=== PATIENT | male | born 1935 | race Caucasian/White ===

== ENCOUNTER 2017-05-17 13:30 | Outpatient (RCR) | payer MEDICARE, SELFPAY ==
--- NOTE | 2017-03-21 14:03 | HP.PTEVAL_ITS ---
Patient's Visit Information SUZAN MARSH is a 81 year old M referred to Physical Therapy by Stephany FLORES with a diagnosis of BACK PAIN. Date of Evaluation: 03/21/17 Physical Therapist: Mj Mari PT, - Visit Plan Frequency: 1x/Week Duration: 4 Weeks Plan: postural ex's,DLS ,strengthening - Subjective Subjective: This 81 y/o male presents to physical therapy with back pain. Patient has had lumbar pain many years. Location of pain symtrical in lumbar ache. Patient symtoms worse with walk ,standing ,affects ADL'S and housework tasks. Patient uses cart when walking at grocery use cart to lean on. Symmptoms better with rest ,sitting. Coughing /sneezing -. C/O parathesia feet from DM. Patient had epidural injection last week which helped pain. Patient has had no treatment in past.If patient carry's anything causes back pain. SOCIAL . VOCATION: retired - Pain Bilateral Back Pain Intensity (Out of 10): 1 Pain Intensity Range: 10 - Objective POSTURE: mild foward posture. GAIT: mild foward posture ,reciprocal pattern. NEURO: c/o parathesia/tingling feet,reflexes L3-4,L4-5.;5-S1. MMT: quads/hams,4 /5,4-/5 ankle 4/5. SYMMTRIES: align. LUMBAR ROM: flexion mod loss,extension loss,side glides mod loss mod loss. FLEXABLITY: hams mod tighty - Special Tests L/S Slump test left side: Negative L/S Slump test right side: Negative L/S Left Straight Leg Raise: Negative L/S Right Straight Leg Raise: Negative Lumbar Standing: Flexion - Mechanical Response: No effect Lumbar Standing: Flexion - Symptoms During Testing: No effect Lumbar Standing: Flexion - Symptoms After Testing: No better Lumbar Standing: Extension - Mechanical Response: No effect Lumbar Standing: Extension - Symptoms During Testing: Increases Lumbar Standing: Extension - Symptoms After Testing: No worse Lumbar Lying: Flexion - Mechanical Response: No effect Lumbar Lying: Flexion - Symptoms During Testing: Decreases Lumbar Lying: Flexion - Symptoms After Testing: Better - Goals Goal 1:: Independant with HEP Goal Time Frame: 4-6 Weeks Goal 2:: Independant with posture for ADL'S Goal Time Frame: 4-6 Weeks Goal 3:: Decrease lumbar pain with walking and standing by 50% or greater to improve function Goal Time Frame: 4-6 Weeks Goal 4:: Patient be able to perform ADL'S and housework tasks with min limations with standing and walking 5-10min - Rehabilitation Potential Physical Therapy Diagnosis: Patient has possible lumbar stenosis with symptoms worse with walking and standing,better with sitting thus benifit from skilled PT Rehabilitation Potential: Excellent - Anticipated Interventions Patient/Client Instruction: Educate patient on: Condition, Plan of Care For the Purpose of:: To decrease pain, To improve muscle performance and motor function, To improve ability to perform ADL's, To increase tolerance to activity /condition/position, To improve ability of physical actions for home/community/ work/leisure, To improve gait and locomotor functions, To improve health of tissue, To decrease soft tissue restriction, To prevent re-injury, To improve ability to perform tasks related to life management Therapeutic Exercise to Include: Strength training, Postural training, Flexibilty training, Dynamic Lumbar Stabilization For the Purpose of:: To decrease pain, To improve ability to perform ADL's, To increase tolerance to activity/condition/position, To improve ability of physical actions for home/community/work/leisure, To improve health of tissue, To decrease soft tissue restriction, To prevent re-injury, To improve ability to perform tasks related to life management IF ES: Yes Cryotherapy (ice pack, ice massage): Yes Thermo therapy (hot pack): Yes Ultrasound (thermal/non thermal): Yes For the Purpose of:: To decrease pain, To increase ROM, To improve nutrient delivery to tissue, To increase oxygenation perfusion, To improve gait and locomotor functions, To improve health of tissue Thank you for the opportunity to evaluate your patient. For Medicare and Medicare HMO plans, please review the plan of care and approve it. It will need to be FAXED BACK to us at [phone] for Medicare purposes. Please let me know if there are questions or concerns regarding this plan of care. Physician Signature: Date:
--- NOTE | 2017-05-17 14:14 | HP.PTDCSUM ---
HP - PT D/C Summary It has been my pleasure to treat SUZAN MARSH under orders from Stephany Caicedo, for the diagnosis of BACK PAIN for a total of 8 visit(s). Discharge Date: 05/17/17 Please see the following information for a summary of their discharge status. - Subjective Subjective: Doing okay pain is intermittant - Pain Bilateral Back Pain Intensity (Out of 10): 2 - Overall Improvement % Improvement: 55 - Objective Objective/Function: POSTURE: mild foward posture. GAIT: mild foward posture normal bettie reciprocal pattern. LUMBAR ROM: min loss all planes. MMT: 4/5 - Goals Goal 1:: Independant with HEP Goal Progress: Goal Met Goal 2:: Independant with posture for ADL'S Goal Progress: Goal Met Goal 3:: Decrease lumbar pain with walking and standing by 50% or greater to improve function Goal Progress: Goal Met Goal 4:: Patient be able to perform ADL'S and housework tasks with min limations with standing and walking 5-10min Goal Progress: Progressing - Plan Plan: d/c to HEP - D/C Information Discharge Comments: HEP If there are questions or concerns regarding this patient's physical therapy, please feel free to call me at [phone]. Thank you for the referral of this patient. Sincerely, Mj Mari, PT,
== END 2017-05-17 19:00 | disposition home or self-care (01) ==
LOC: PT 13:30
PROVIDERS: Family Provider Internal Medicine; PCP Internal Medicine; Visit Provider Anesthesiology Pain Medicine
DX: M54.9 Dorsalgia, unspecified (principal)
CPT/HCPCS: 97110; 97162

== ENCOUNTER → 2020-03-04 13:48 | Outpatient (CLI) | payer MEDICARE, SELFPAY ==
[2020-03-04 13:02] VITALS: BMI 34.3
[2020-03-04 15:02] LABS: Absolute Lymphocyte Count 0.95 X10^3/uL (0.83-4.51); Absolute Neutrophil Count 3.8 X10^3/uL (2.0-7.7); Basophil# 0.02 X10^3/uL; Basophil% 0.4 % (0-1); Eosinophil# 0.15 X10^3/uL; Eosinophils% 2.8 % (0-5); Hematocrit 37.3 % (40-54); Hemoglobin 11.3 g/dL (13.0-16.5); Lymphocyte # 0.95 X10^3/ul (4.0); Mean Corp Hgb Conc 30.3 g/dL (32-36); Mean Corpuscular Hgb 31.8 pg (27.0-32.0); Mean Corpuscular Volume 105.1 fL (80-94); Mean Platelet Vol. 10.3 fl (6.2-12.0); Monocyte# 0.33 X10^3/uL; Monocyte% 6.3 % (0-10); NRBC Flagged by Analyzer 0 % (0-5); Neutrophil % 72.1 % (47-70); Platelet Count 178 K/mm3 (150-450); RBC Distribution Width CV 13.7 % (11.6-14.6); RBC Distribution Width SD 53.6 fl (35.1-43.9); Red Blood Count 3.55 M/mm3 (4.6-6.2); White Blood Count 5.3 K/mm3 (4.4-11.0)
[2020-03-04 15:38] LABS: Anion Gap 2 (5-15); BUN 19 mg/dL (7-18); BUN/Creat Ratio 11.7 RATIO (10-20); Calcium,Total 9.3 mg/dL (8.5-10.1); Chloride 100 mmol/L (98-107); Creatinine, Serum 1.63 mg/dL (0.70-1.30); EST Glomerular Filtration Rate 43 mL/min (>60); Est Glom Filt Rate - Afr Amer 52 mL/min (>60); Glucose 112 mg/dL (74-106); Sodium Level 139 mmol/L (136-145)
== END ==
PROVIDERS: PCP Internal Medicine; Referring Provider Nurse Practitioner Family; Visit Provider Nurse Practitioner Family
DX: R06.00 Dyspnea, unspecified (principal); I48.0 Paroxysmal atrial fibrillation; I49.3 Ventricular premature depolarization; I10 Essential (primary) hypertension; E78.5 Hyperlipidemia, unspecified; I27.21 Secondary pulmonary arterial hypertension
CPT/HCPCS: 36415; 80048; 83880; 85025

== ENCOUNTER → 2020-04-18 13:30 | Outpatient (CLI) | payer MEDICARE, SELFPAY ==
--- NOTE | 2020-04-18 13:32 | ECHOD_ITS ---
Reason For Study: DYSPNEA/SOB Procedure This was a 2D Doppler, Color Flow transthoracic echocardiogram. The study was technically difficult. Due to body habitus. Deferred definity due to increases PAP. Exam performed in department. Left Ventricle Normal LV size. Left ventricular systolic function is lower limits of normal. The estimated ejection fraction is 45 %. No regional wall motion abnormalities noted. Right Ventricle Normal RV size. Normal systolic function. Atria The left atrium is moderately enlarged. Normal right atrium. Mitral Valve Normal mitral valve. Tricuspid Valve Normal tricuspid valve. Moderate (2+) tricuspid valve insufficiency. Moderate pulmonary hypertension. Pulmonary artery systolic pressure is 60 mmHg. Aortic Valve Trisinus/trileaflet aortic valve. Mild focal aortic valve calcification. Pulmonic Valve The pulmonic valve is not well visualized. Great Vessels Normal aortic root. The pulmonary artery is normal size. Normal inferior vena cava. Pericardium/Pleural No pericardial effusion. MMode/2D Measurements & Calculations LVIDd: 5.5 cm IVSd: 1.4 cm LVOT diam: 2.0 cm LVIDs: 3.7 cm LVPWd: 1.1 cm LVOT area: 3.3 cm2 RVDd: 3.3 cm FS: 32.1 % Ao root diam: 3.3 cm LAV(MOD-bp): 79.8 ml LA A4 area: 23.1 cm2 LAV(MOD-bp) Indexed: 38.8 ml/m2 LAV(MOD-sp2): 74.5 ml LAV(MOD-sp4): 69.8 ml LA dimension(2D): 4.0 cm RA A4 area: 17.8 cm2 Doppler Measurements & Calculations MV E max bashir: 94.2 cm/sec Ao V2 max: 164.1 cm/sec LV V1 max: 95.8 cm/sec Ao max P.8 mmHg LV V1 max P.7 mmHg DYANA(V,D): 1.9 cm2 PA V2 max: 70.9 cm/sec TR max bashir: 359.5 cm/sec TR max P.6 mmHg Interpretation Summary Normal LV size. Left ventricular systolic function is lower limits of normal. The estimated ejection fraction is 45 %. Moderate pulmonary hypertension. Pulmonary artery systolic pressure is 60 mmHg. Ordering Physician: Minesh Jerez Referring Physician: Edvin Sung Performed By: Lorena Teran, SIM, RVT
== END ==
PROVIDERS: PCP Internal Medicine; Referring Provider Nurse Practitioner Family; Visit Provider Nurse Practitioner Family
DX: I48.0 Paroxysmal atrial fibrillation (principal); E78.5 Hyperlipidemia, unspecified; I10 Essential (primary) hypertension; I27.21 Secondary pulmonary arterial hypertension; I49.3 Ventricular premature depolarization
CPT/HCPCS: 93306

== ENCOUNTER → 2020-05-02 14:31 | Outpatient (CLI) | payer MEDICARE, SELFPAY ==
[2020-05-02 16:15] LABS: Anion Gap 7 (5-15); BUN 31 mg/dL (7-18); BUN/Creat Ratio 17.8 RATIO (10-20); Calcium,Total 9.4 mg/dL (8.5-10.1); Chloride 98 mmol/L (98-107); Creatinine, Serum 1.74 mg/dL (0.70-1.30); EST Glomerular Filtration Rate 40 mL/min (>60); Est Glom Filt Rate - Afr Amer 48 mL/min (>60); Glucose 105 mg/dL (74-106); Potassium 4.2 mmol/L (3.5-5.1); Sodium Level 135 mmol/L (136-145)
== END ==
PROVIDERS: PCP Internal Medicine; Visit Provider Internal Medicine Cardiovascular Disease
DX: I48.0 Paroxysmal atrial fibrillation (principal); I49.3 Ventricular premature depolarization; I10 Essential (primary) hypertension
CPT/HCPCS: 36415; 80048

== ENCOUNTER 2020-07-18 17:06 | Emergency (ER) | payer MEDICARE, SELFPAY ==
[2020-07-18 17:07] VITALS: BP 137/85; PULSE 101; PULSE 104; RESP 21; RESP 25; TEMP 36.9; O2SAT 86; O2SAT 94; BMI 39.4
--- NOTE | 2020-07-18 17:21 | EKG12_ITS ---
Test Reason : WEAKNESS/NEAR SYNCOP Blood Pressure : / mmHG Vent. Rate : 108 BPM Atrial Rate : 220 BPM P-R Int : 000 ms QRS Dur : 122 ms QT Int : 344 ms P-R-T Axes : 000 116 009 degrees QTc Int : 460 ms Atrial fibrillation with rapid ventricular response with premature ventricular or aberrantly conducte d complexes Right axis deviation Non-specific intra-ventricular conduction delay Abnormal ECG Confirmed by SOFY OLSON, MINDY ([id number]), purchasing expeditor JOHN DAWSON ([id number]) on 07/21/2020 1:38:14 PM Referred By: FADUMO Confirmed By:MINDY GOETZ MD
--- NOTE | 2020-07-18 17:21 | CT_ITS ---
STUDY: CT BRAIN WITHOUT CONTRAST REASON FOR EXAM: Male, 84 years old. fall RADIATION DOSAGE (If Supplied By Facility): CTDIvol = ( 44.99 ) mGy, DLP = ( 812.98 ) mGycm TECHNIQUE: Transaxial CT imaging of the brain was performed without administration of intravenous contrast material. Individualized dose optimization techniques were used for this CT. COMPARISON: No relevant priors. FINDINGS: There is no intra-/extra-axial fluid collection, mass effect, or midline shift. The cooper/white matter junction is preserved. Hypoattenuation of periventricular and subcortical white matter suggestive of chronic small vessel ischemic disease. Mild diffuse parenchymal volume loss is noted. There is vascular calcification. The basal cisterns are patent. There is a small polyps versus retention cysts in the right maxillary sinus. Other paranasal sinuses and mastoid air cells are clear. The calvarium is intact. CT/Brain/Head without Contrast IMPRESSION: No acute intracranial finding. Electronically Signed: Chandler Cowan MD at 19:47 EDT Tel , Service support ,
--- NOTE | 2020-07-18 17:23 | EX.ED.DYSGE1 ---
HPI History of Present Illness Chief Complaint: Weakness Informant: patient Onset/Context/Timing Onset: Today Current Severity: Mild Maximum Severity: Moderate Narrative Narrative: Patient presents after a fall with generalized weakness. Patient states that he was out running errands today. He got up to go to the restroom and became weak when trying to ambulate that far. He states he fell to the ground but did not lose consciousness. He does wear 4 to 5 L nasal cannula oxygen and states he did have oxygen on at the time. He states he has noted increased difficulty with walking long distances and carrying items. At this time patient states he does feels generally weak. He has no pain. He does not feel short of breath when sitting at rest. [facility] Medical History (Updated 07/18/20 @ 20:[address] Emelia Diaz MD) Carotid artery stenosis COPD (chronic obstructive pulmonary disease) CRF (chronic renal failure) Essential (primary) hypertension Hyperlipidemia Hypothyroidism Obesity Paroxysmal atrial fibrillation Premature ventricular contractions Secondary pulmonary arterial hypertension Type 2 diabetes mellitus Home Medications aspirin 81 mg tablet,delayed release 81 mg PO DAILY 09/24/18 [History Last Taken Unknown] cyanocobalamin (vitamin B-12) 1,000 mcg capsule 1,000 mcg PO DAILY 09/24/18 [History Last Taken Unknown] gabapentin 300 mg capsule 300 mg PO QHS 09/24/18 [History Last Taken Unknown] levothyroxine 137 mcg capsule 137 mcg PO DAILY 09/24/18 [History Last Taken Unknown] lisinopril 40 mg tablet 40 mg PO DAILY 09/24/18 [History Last Taken Unknown] magnesium oxide 400 mg PO DAILY 09/24/18 [History Last Taken Unknown] metformin 500 mg 24 hr tablet,extended release 500 mg PO BID tab 09/24/18 [History Last Taken Unknown] metoprolol succinate 25 mg tablet,extended release 24 hr 25 mg PO DAILY 09/24/18 [History Last Taken Unknown] nitroglycerin 0.4 mg sublingual tablet 0.4 mg SUBLINGUAL Q5-15M 09/24/18 [History Last Taken Unknown] pravastatin 20 mg tablet 20 mg PO QHS tab 09/24/18 [History Last Taken Unknown] tiotropium bromide 1.25 mcg/actuation mist for inhalation 2 puff INHALATION DAILY 09/24/18 [History Last Taken Unknown] warfarin 3 mg tablet 3 mg PO 4XW 09/24/18 [History Last Taken Unknown] warfarin 4 mg tablet 4 mg PO Q OTHER DAY 09/24/18 [History Last Taken Unknown] mometasone-formoterol HFA 200 mcg-5 mcg/actuation aerosol inhaler INHALATION 08/07/19 [History Last Taken Unknown] furosemide 40 mg tablet 40 mg PO BID #60 tab 08/21/19 [Rx Last Taken Unknown] Allergy/AdvReac Type Severity Reaction Status Date / Time Penicillins AdvReac swelling Verified 07/18/20 17:07 Family History Father Hypertension Sister Hypertension Cancer Diabetes Sister Cancer Sister CAD (coronary artery disease) Brother CAD (coronary artery disease) Hypertension Surgical History 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 Social History Smoking Status: Former smoker quit date: 02/07/03 pack-years: 50 ROS ROS ED Constitutional Constitutional ED: Denies chills or fever(s) Eyes Eyes: Denies change in vision ENT ENT ED: Denies sore throat Cardiovascular Cardiovascular: Denies chest pain Respiratory/Chest Respiratory/Chest: Denies cough or dyspnea Gastrointestinal Gastrointestinal: Denies abdominal pain, diarrhea, nausea or vomiting Genitourinary Genitourinary ED: Denies dysuria Musculoskeletal Musculoskeletal: Denies back pain Integumentary Reports Abrasions; Denies rash Neurologic Neurologic: Denies headache(s) or weakness Psychiatric Psychiatric: Denies anxiety or depression Endocrine Endocrinology: Denies polydipsia or polyuria Allergic/Immunologic Allergic/Immunologic ED: Denies urticaria EXAM Physical Exam Const Vital Signs: 07/18/20 17:07 07/18/20 17:12 07/18/20 18:01 Temperature 98.4 F Temperature Source Oral Pulse Rate 101 H Respiratory Rate 25 H Respiratory Effort Normal Respiratory Pattern Normal Blood Pressure 137/85 H Blood Pressure Mean 102 Pulse Ox 94 Oxygen Delivery Method Nasal Cannula Nasal Cannula Oxygen Flow Rate (L/min) 5 2 07/18/20 18:10 07/18/20 19:14 Temperature Temperature Source Pulse Rate 93 Respiratory Rate 20 H Respiratory Effort Respiratory Pattern Blood Pressure 115/84 H Blood Pressure Mean 94 Pulse Ox 89 97 Oxygen Delivery Method Nasal Cannula Room Air Oxygen Flow Rate (L/min) 4.5 Positive well nourished and well developed General Appearance ED: well developed HEENT Reports normocephalic and head/scalp atraumatic Eyes PERRL and EOMs intact bilaterally Neck supple Chest Wall inspection of chest normal and palpation of chest normal Resp normal respiratory effort Auscultation: diminished lung sounds Cardio Rate: tachycardic Rhythm: abnormal rhythm irregularly irregular GI normal to inspection, nondistended, normoactive bowel sounds Palpation: soft Back/Spine no CVA tenderness Extremity Extremity Narrative: Abrasion to the left fifth finger. Neuro oriented x3 and no sensory deficits noted Sensorium / Orientation: alert Motor Exam: strength 5/5 throughout Psych mental status grossly normal MDM MDM MDM Narrative Medical decision making narrative: Patient was placed back on his normal 4 to 5 L of nasal cannula oxygen. EKG, chest x-ray, head CT, labs are obtained. Lab Data Attestation: I reviewed the patient's lab results. Labs: Laboratory Results - last 24 hr 07/18/20 07/18/20 07/18/20 16:00 17:45 17:45 WBC 4.1 L RBC 3.34 L Hgb 10.5 L Hct 34.1 L MCV 102.1 H MCH 31.4 MCHC 30.8 L RDW Std Deviation 55.4 H RDW Coeff of Luis 14.7 H Plt Count 137 L MPV 10.4 Immature Gran % (Auto) 0.200 Neut % (Auto) 72.6 H Lymph % (Auto) 20.1 Hardy % (Auto) 3.9 Eos % (Auto) 2.7 Baso % (Auto) 0.5 Absolute Neuts (auto) 3.0 Absolute Lymphs (auto) 0.82 L Nucleated RBC % 0 PT 18.5 H INR 1.6 Sodium 137 Potassium 4.8 Chloride 101 Carbon Dioxide 32.0 Anion Gap 4 L BUN 27 H Creatinine 1.86 H Estim Creat Clear Calc 22.42 Est GFR (MDRD) Af Amer 45 L Est GFR (MDRD) Non-Af 37 L BUN/Creatinine Ratio 14.5 Glucose 176 H Calcium 9.3 Troponin I < 0.015 Radiography Chest X-Ray - ED: 1 View, Read by ED Physician and Chronic Changes Diagnostic Testing: Radiology Impression Brain CT 07/18/20 17:21 IMPRESSION: No acute intracranial finding. Electronically Signed: Chandler Cowan MD at 19:47 EDT Tel , Service support , Chest X-Ray 07/18/20 18:43 IMPRESSION: Mild cardiomegaly. No acute pulmonary process. Electronically Signed: Chandler Cowan MD at 19:47 EDT Tel , Service support , EKG Initial EKG: Attestation: I personally reviewed and interpreted this EKG as follows: Interpretation: Atrial Fibrillation (A. fib at 108. No acute ST change.) Treatment and Re-Evaluation Comments:: Patient's INR is slightly subtherapeutic. He did note that he missed 2 days of his medication earlier this week. He was advised to ensure he takes his medication as written and have his level rechecked. On 5 L nasal cannula patient's O2 sat is in the high 90s. Patient does note that he has had worsening shortness of breath with any exertion for quite some time. My suspicion is that his sats are dropping. His episode today occurred while he was walking a longer distance than normal. I did advise him to turn his oxygen up as high as he can when he is going to be up and walking. He states that his meter only goes to 5 L. 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 Discharge Plan Triage Chief Complaint: Weakness ED Provider: Emelia Diaz Dx/Rx/DC Orders Clinical Impression: Near syncope Instructions: ED Weakness (Uncertain Cause) Prescriptions: No Action metformin 500 mg tablet,ER sofía.retention 24 hr 500 mg PO BID RF: 0 gabapentin [Neurontin] 300 mg capsule 300 mg PO QHS RF: 0 warfarin 3 mg tablet 3 mg PO 4XW RF: 0 warfarin 4 mg tablet 4 mg PO Q OTHER DAY RF: 0 levothyroxine 137 mcg capsule 137 mcg capsule 137 mcg PO DAILY RF: 0 pravastatin 20 mg tablet 20 mg PO QHS RF: 0 metoprolol succinate 25 mg tablet extended release 24 hr 25 mg PO DAILY RF: 0 lisinopril 40 mg tablet 40 mg PO DAILY RF: 0 nitroglycerin 0.4 mg tablet, sublingual 0.4 mg SUBLINGUAL Q5-15M RF: 0 cyanocobalamin (vitamin B-12) 1,000 mcg capsule 1,000 mcg PO DAILY RF: 0 magnesium oxide 400 mg magnesium capsule 400 mg PO DAILY RF: 0 aspirin [Adult Low Dose Aspirin] 81 mg tablet,delayed release (DR/EC) 81 mg PO DAILY RF: 0 Spiriva Respimat 1.25 mcg/actuation mist 2 puff INHALATION DAILY RF: 0 mometasone-formoterol 200-5 mcg/actuation HFA aerosol inhaler INHALATION RF: 0 furosemide [Lasix] 40 mg tablet 40 mg PO BID Qty: 60 RF: 11 Primary Care Provider: Edvin Sung Referrals: Joe Roger MD [NON-STAFF] - As soon as possible Edvin Sung MD [Primary Care Provider] - Disposition Disposition: Home, self care
[2020-07-18 17:53] LABS: Absolute Lymphocyte Count 0.82 X10^3/uL (0.83-4.51); Basophil# 0.02 X10^3/uL; Basophil% 0.5 % (0-1); Eosinophil# 0.11 X10^3/uL; Eosinophils% 2.7 % (0-5); Hematocrit 34.1 % (40-54); Hemoglobin 10.5 g/dL (13.0-16.5); Lymphocyte # 0.82 X10^3/ul (0.83-4.51); Lymphocyte % 20.1 % (19-41); Mean Corp Hgb Conc 30.8 g/dL (32-36); Mean Corpuscular Hgb 31.4 pg (27.0-32.0); Mean Corpuscular Volume 102.1 fL (80-94); Mean Platelet Vol. 10.4 fl (6.2-12.0); Monocyte# 0.16 X10^3/uL; Monocyte% 3.9 % (0-10); NRBC Flagged by Analyzer 0 % (0-5); Neutrophil # 2.96 X10^3/uL (2.7-7.7); Neutrophil % 72.6 % (47-70); Platelet Count 137 K/mm3 (150-450); RBC Distribution Width CV 14.7 % (11.6-14.6); RBC Distribution Width SD 55.4 fl (35.1-43.9); Red Blood Count 3.34 M/mm3 (4.6-6.2); White Blood Count 4.1 K/mm3 (4.4-11.0)
[2020-07-18 18:10] VITALS: O2SAT 89
[2020-07-18 18:14] LABS: Anion Gap 4 (5-15); BUN 27 mg/dL (7-18); BUN/Creat Ratio 14.5 RATIO (10-20); Calcium,Total 9.3 mg/dL (8.5-10.1); Chloride 101 mmol/L (98-107); Creatinine, Serum 1.86 mg/dL (0.70-1.30); EST Glomerular Filtration Rate 37 mL/min (>60); Est Glom Filt Rate - Afr Amer 45 mL/min (>60); Estimated Creatinine Clearance 22.42 ml/min; Glucose 176 mg/dL (74-106); Potassium 4.8 mmol/L (3.5-5.1); Sodium Level 137 mmol/L (136-145)
[2020-07-18 18:17] LABS: International Normalized Ratio 1.6; Prothrombin Time (Protime)PT. 18.5 SECONDS (11.7-14.9)
--- NOTE | 2020-07-18 18:43 | RAD_ITS ---
STUDY: X-RAY CHEST REASON FOR EXAM: Male, 84 years old. sob TECHNIQUE: 1 view COMPARISON: None. FINDINGS: The cardiac silhouette is mildly enlarged. Costophrenic angles are sharp. Lungs are clear. The trachea is midline. There is no pneumothorax. Multilevel thoracic spondylosis is noted. RAD/Chest 1 View (Portable) IMPRESSION: Mild cardiomegaly. No acute pulmonary process. Electronically Signed: Chandler Cowan MD at 19:47 EDT Tel , Service support ,
[2020-07-18 19:14] VITALS: BP 115/84; PULSE 93; RESP 20; O2SAT 97
[2020-07-18 20:36] VITALS: BP 162/128; PULSE 106; RESP 25; O2SAT 100
== END 2020-07-18 21:01 | disposition home or self-care (01) ==
PROVIDERS: Emergency Provider Emergency Medicine; PCP Internal Medicine
DX: R55 Syncope and collapse (principal); R53.1 Weakness; E66.9 Obesity, unspecified; Z87.891 Personal history of nicotine dependence
CPT/HCPCS: 70450; 71045; 80048; 84484; 85025; 85610; 93005; 99285; A4216

== ENCOUNTER → 2020-11-25 13:03 | Outpatient (CLI) | payer MEDICARE, SELFPAY ==
[2020-11-25 13:09] LABS: Bacteria 0 SEEN /hpf (None Seen); Mucous, Urine 0 SEEN /hpf (<or=2+); Squamous Epithelial Cells - UA 0 SEEN /hpf (0-5)
[2020-11-25 13:36] LABS: Color, Urine Yellow (Yellow); Glucose, Dipstick Normal (Normal); Ketone-Dipstick Negative (Negative); Leukocyte Esterase-Dipstick Negative /ul (Negative); Nitrite-Dipstick Negative (Negative); Occult Blood-Urine 50 /ul (Negative); Protein-Dipstick 30 mg/dl (Negative); Urine Bilirubin Dipstick Negative (Negative); Urine Clarity Clear (Clear); Urine Urobilinogen 1 mg/dl (Normal)
[2020-11-25 13:44] LABS: Red Blood Cells-Urine 0-5 SEEN /hpf (0-5); White Blood Cells 0-5 SEEN /hpf (0-5)
[2020-11-25 13:45] LABS: Protein, Urine (Random) 38.3 mg/dL (<11.9); Protein:Creat Ratio 319 mg/g CRE (0-200)
[2020-11-25 13:51] LABS: PTHIN 39.7 pg/mL (18.4-80.1)
[2020-11-25 14:07] LABS: BUN 40 mg/dL (7-18); BUN/Creat Ratio 21.2 RATIO (10-20); Calcium,Total 9.7 mg/dL (8.5-10.1); Chloride 98 mmol/L (98-107); Creatinine, Serum 1.89 mg/dL (0.70-1.30); EST Glomerular Filtration Rate 36 mL/min (>60); Est Glom Filt Rate - Afr Amer 44 mL/min (>60); Glucose 123 mg/dL (74-106); Phosphorus 3.3 mg/dL (2.5-4.9); Potassium 4.7 mmol/L (3.5-5.1); Sodium Level 138 mmol/L (136-145)
== END ==
PROVIDERS: PCP Internal Medicine; Referring Provider Internal Medicine Nephrology; Visit Provider Internal Medicine Nephrology
DX: E11.22 Type 2 diabetes mellitus with diabetic chronic kidney disease (principal); N18.32 Chronic kidney disease, stage 3b
CPT/HCPCS: 36415; 80069; 81001; 82570; 83970; 84156

== ENCOUNTER 2020-12-31 15:57 | Inpatient (IN) | payer MEDICARE, SELFPAY ==
[2020-12-31] VITALS (10 sets, daily range): BP systolic 103–131; BP diastolic 64–92; PULSE 87–112; RESP 17–25; TEMP 36.4–36.9; O2SAT 93–99; BMI 34.3; BMI 33.7
--- NOTE | 2020-12-31 16:17 | EKG12_ITS ---
Test Reason : SOB Blood Pressure : / mmHG Vent. Rate : 095 BPM Atrial Rate : 111 BPM P-R Int : 000 ms QRS Dur : 104 ms QT Int : 348 ms P-R-T Axes : 000 148 024 degrees QTc Int : 437 ms Atrial fibrillation with premature ventricular or aberrantly conducted complexes Low voltage QRS Left posterior fascicular block Septal infarct , age undetermined Inferior infarct , age undetermined Abnormal ECG Confirmed by SOFY OLSON, MINDY ([id number]), associate editor JOHN DAWSON ([id number]) on 01/02/2021 11:43:05 AM Referred By: GERONIMO Confirmed By:MINDY GOETZ MD
--- NOTE | 2020-12-31 16:18 | ED.VIS.DYS ---
HPI History of Present Illness Chief Complaint: Shortness of Breath Narrative Narrative: 85-year-old male presenting for evaluation from home. Apparently he was in town with his oxygen tank which he brings with him while he is out and about. He states his baseline is 4 to 4-1/2 L of oxygen. He states he has a baseline O2 sat from 86-94. Patient states that his oxygen tank ran out and he noticed this. He was able to make it all the way to home but then collapsed on his way into the house. He does not have much recollection of this. It was noted by EMS that his saw him collapse and started doing CPR. It sounds as if she started this and then when he started moaning she stopped. Patient states he feels otherwise fine currently. [facility] Medical History Carotid artery stenosis COPD (chronic obstructive pulmonary disease) CRF (chronic renal failure) Essential (primary) hypertension HFrEF (heart failure with reduced ejection fraction) Hyperlipidemia Hypothyroidism Longstanding persistent atrial fibrillation Non-ischemic cardiomyopathy Obesity Paroxysmal atrial fibrillation Premature ventricular contractions Secondary pulmonary arterial hypertension Type 2 diabetes mellitus Home Medications aspirin 81 mg tablet,delayed release 81 mg PO DAILY 09/24/18 [History Last Taken Unknown] cyanocobalamin (vitamin B-12) 1,000 mcg capsule 1,000 mcg PO DAILY 09/24/18 [History Last Taken Unknown] gabapentin 300 mg capsule 300 mg PO QHS 09/24/18 [History Last Taken Unknown] levothyroxine 137 mcg capsule 125 mcg PO DAILY 09/24/18 [History Last Taken Unknown] lisinopril 40 mg tablet 20 mg PO DAILY 09/24/18 [History Last Taken Unknown] magnesium oxide 800 mg PO DAILY 09/24/18 [History Last Taken Unknown] metformin 500 mg 24 hr tablet,extended release 500 mg PO BID tab 09/24/18 [History Last Taken Unknown] metoprolol succinate 25 mg tablet,extended release 24 hr 25 mg PO DAILY 09/24/18 [History Last Taken Unknown] nitroglycerin 0.4 mg sublingual tablet 0.4 mg SUBLINGUAL Q5-15M 09/24/18 [History Last Taken Unknown] pravastatin 20 mg tablet 20 mg PO QHS tab 09/24/18 [History Last Taken Unknown] tiotropium bromide 1.25 mcg/actuation mist for inhalation 2 puff INHALATION DAILY 09/24/18 [History Last Taken Unknown] warfarin 3 mg tablet 3 mg PO 4XW 09/24/18 [History Last Taken Unknown] warfarin 4 mg tablet 4 mg PO Q OTHER DAY 09/24/18 [History Last Taken Unknown] mometasone-formoterol HFA 200 mcg-5 mcg/actuation aerosol inhaler 1 puff INHALATION BID 08/07/19 [History Last Taken Unknown] spironolactone 25 mg tablet 25 mg PO DAILY 07/28/20 [History Last Taken Unknown] furosemide 40 mg tablet 40 mg PO BID #60 tab 09/08/20 [Rx Last Taken Unknown] pioglitazone 15 mg tablet 15 mg PO DAILY 11/11/20 [History Last Taken Unknown] Allergy/AdvReac Type Severity Reaction Status Date / Time Penicillins AdvReac swelling Verified 12/31/20 16:08 Family History Father Hypertension Sister Hypertension Cancer Diabetes Sister Cancer Sister CAD (coronary artery disease) Brother CAD (coronary artery disease) Hypertension Surgical History 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 Social History Smoking Status: Former smoker quit date: 02/07/03 pack-years: 50 ROS ROS ED Constitutional Constitutional ED: Denies chills or fever(s) Eyes Eyes: Denies blurry vision or change in vision ENT ENT ED: Denies rhinorrhea or sore throat Cardiovascular Cardiovascular: Denies palpitations or racing heartbeat Respiratory/Chest Respiratory/Chest: Reports dyspnea and dyspnea on exertion; Denies cough Gastrointestinal Gastrointestinal: Denies abdominal pain, nausea or vomiting Genitourinary Genitourinary ED: Denies dysuria or hematuria Musculoskeletal Musculoskeletal: Denies arthralgias or myalgias Integumentary Denies rash Neurologic Neurologic: Denies headache(s) or paresthesias Psychiatric Psychiatric: Denies anxiety or depression EXAM Physical Exam Const Vital Signs: 12/31/20 15:58 12/31/20 16:06 12/31/20 16:20 Temperature 97.8 F Temperature Source Oral Pulse Rate 102 H Respiratory Rate 19 H Respiratory Effort Normal Non-Labored Respiratory Depth Normal Respiratory Pattern Normal Blood Pressure 120/90 H Blood Pressure Mean 100 Pulse Ox 94 94 Oxygen Delivery Method Nasal Cannula Nasal Cannula Nasal Cannula Oxygen Flow Rate (L/min) 4 4 4 12/31/20 16:58 Temperature Temperature Source Pulse Rate 107 H Respiratory Rate 22 H Respiratory Effort Respiratory Depth Respiratory Pattern Blood Pressure 103/64 Blood Pressure Mean 77 Pulse Ox 94 Oxygen Delivery Method Nasal Cannula Oxygen Flow Rate (L/min) 2 Positive well nourished General Appearance ED: NAD HEENT Reports moist mucous membranes Eyes PERRL and EOMs intact bilaterally Chest Wall Chest Narrative: Mild tenderness to the right side of the sternum. Equal breath sounds and chest wall rise bilaterally Resp normal respiratory effort Auscultation: Negative for rales, rhonchi or wheezes Cardio regular rhythm Rate: tachycardic GI non-tender and non-distended Palpation: soft Neuro oriented x3, CN's II-XII intact bilaterally and no sensory deficits noted Sensorium / Orientation: alert Motor Exam: strength 5/5 throughout Psych mental status grossly normal Thought Process: normal thought process Skin Lesions: no lesions Rashes: no rashes MDM MDM MDM Narrative Medical decision making narrative: 35-year-old male presenting with hypoxia from home. Apparently his oxygen ran out and he had some confusion and weakness and fell to the ground. She started to do CPR and maybe did one compression but then stopped after he started waking up. Patient was placed on oxygen via EMS he had been normal. He only has complained of some mild sternal pain on the right. His oxygen is at baseline. He has no other complaints. His CBC shows that he is slightly leukopenic with white blood cell count 4.1, hemoglobin 9.5 hematocrit 30.6, platelets 142. INR is subtherapeutic at 1.8. Creatinine slightly elevated at her baseline at 1.96. Potassium is elevated at 6.0. He is given insulin and glucose as well as calcium gluconate. His EKG on my interpretation shows atrial fibrillation with a ventricular rate of 95 bpm without signs of changes associated with hyperkalemia. Chest x-ray my interpretation shows right-sided infiltrate and effusion. Is possible the patient could have had an aspiration pneumonia given his hypoxia and shortness of breath. He will be given a dose of Unasyn in the ER. Troponin is normal and his BNP is elevated. At this point I think he needs to stay in the hospital he had his potassium treated as well as he can for aspiration pneumonia. Patient discussed with hospitalist for admission. Impression: 1. Hypoxic respiratory failure 2. Hyperkalemia 3. Aspiration pneumonia Lab Data Attestation: I reviewed the patient's lab results. Labs: Laboratory Results - last 24 hr 12/31/20 12/31/20 12/31/20 16:40 16:40 16:40 WBC 4.1 L RBC 2.80 L Hgb 9.5 L Hct 30.6 L MCV 109.3 H MCH 33.9 H MCHC 31.0 L RDW Std Deviation 54.9 H RDW Coeff of Luis 13.6 Plt Count 142 L MPV 9.5 Immature Gran % (Auto) 0.000 Neut % (Auto) 89.7 H Lymph % (Auto) 8.1 L [place] % (Auto) 1.7 Eos % (Auto) 0.5 Baso % (Auto) 0.0 Absolute Neuts (auto) 3.7 Absolute Lymphs (auto) 0.33 L Nucleated RBC % 0 Differential Comment Diff Path Review May foll Platelet Estimate SLT DEC RBC Morphology NORM C+C PT 20.0 H INR 1.8 Sodium 135 L Potassium 6.0 H* Chloride 100 Carbon Dioxide 29.0 Anion Gap 6 BUN 36 H Creatinine 1.96 H Estim Creat Clear Calc 24.41 Est GFR (MDRD) Af Amer 42 L Est GFR (MDRD) Non-Af 35 L BUN/Creatinine Ratio 18.4 Glucose 139 H Calcium 9.8 Troponin I High Sens 18 B-Natriuretic Peptide 12/31/20 16:40 WBC RBC Hgb Hct MCV MCH MCHC RDW Std Deviation RDW Coeff of Luis Plt Count MPV Immature Gran % (Auto) Neut % (Auto) Lymph % (Auto) [place] % (Auto) Eos % (Auto) Baso % (Auto) Absolute Neuts (auto) Absolute Lymphs (auto) Nucleated RBC % Differential Comment Diff Path Review Platelet Estimate RBC Morphology PT INR Sodium Potassium Chloride Carbon Dioxide Anion Gap BUN Creatinine Estim Creat Clear Calc Est GFR (MDRD) Af Amer Est GFR (MDRD) Non-Af BUN/Creatinine Ratio Glucose Calcium Troponin I High Sens B-Natriuretic Peptide 366.3 H Radiography Diagnostic Testing: Clinical Impression(s) from Imaging Studies Chest X-Ray 12/31/20 16:48 IMPRESSION: Right lower lobe infiltrate with associated effusion. Follow-up recommended to ensure resolution Electronically Signed: Silvio Nieves MD at 17:11 EST , Service support , Discharge Plan Disposition Disposition: Acute Care Hospital [facility] Discharge Date/Time: 12/31/20 18:48
[2020-12-31 16:48] LABS: Absolute Lymphocyte Count 0.33 X10^3/uL (0.83-4.51); Absolute Neutrophil Count 3.7 X10^3/uL (2.0-7.7); Eosinophil# 0.02 X10^3/uL; Eosinophils% 0.5 % (0-5); Hematocrit 30.6 % (40-54); Hemoglobin 9.5 g/dL (13.0-16.5); Lymphocyte # 0.33 X10^3/ul (0.83-4.51); Lymphocyte % 8.1 % (19-41); Mean Corpuscular Hgb 33.9 pg (27.0-32.0); Mean Corpuscular Volume 109.3 fL (80-94); Mean Platelet Vol. 9.5 fl (6.2-12.0); Monocyte# 0.07 X10^3/uL; Monocyte% 1.7 % (0-10); NRBC Flagged by Analyzer 0 % (0-5); Neutrophil # 3.65 X10^3/uL (2.7-7.7); Neutrophil % 89.7 % (47-70); POSITIVE DIFFERENTIAL YES; Platelet Count 142 K/mm3 (150-450); RBC Distribution Width CV 13.6 % (11.6-14.6); RBC Distribution Width SD 54.9 fl (35.1-43.9); White Blood Count 4.1 K/mm3 (4.4-11.0)
--- NOTE | 2020-12-31 16:48 | RAD_ITS ---
STUDY: X-RAY CHEST REASON FOR EXAM: Male, 85 years old. Chest pain TECHNIQUE: Single AP portable view of the chest. COMPARISON: None. FINDINGS: EKG leads overlie the chest Lungs are expanded, left lung is clear, there are subtle opacifications in the right mid and lower lung field with small right pleural effusion suggestive of infiltrate. Follow-up recommended to assure resolution Normal size heart. Normal mediastinum and tisha. Normal visualized pulmonary arteries. There is atherosclerotic calcification of the aortic arch with tortuosity. There are diffuse degenerative changes of the visualized thoracic spine. There is degenerative osteoarthritis of the bilateral shoulders. There is no demonstrated abnormality of the visualized soft tissue structures of the upper abdomen. RAD/Chest 1 View (Portable) IMPRESSION: Right lower lobe infiltrate with associated effusion. Follow-up recommended to ensure resolution Electronically Signed: Silvio Nieves MD at 17:11 EST , Service support ,
[2020-12-31 16:49] LABS: Differential Indicated SCAN CRITERIA MET
[2020-12-31 17:09] LABS: BNP,B-Type NATRIURETIC PEPTIDE 366.3 pg/mL (0-100); International Normalized Ratio 1.8
[2020-12-31 17:11] LABS: Anion Gap 6 (5-15); BUN 36 mg/dL (7-18); BUN/Creat Ratio 18.4 RATIO (10-20); Calcium,Total 9.8 mg/dL (8.5-10.1); Chloride 100 mmol/L (98-107); Creatinine, Serum 1.96 mg/dL (0.70-1.30); EST Glomerular Filtration Rate 35 mL/min (>60); Est Glom Filt Rate - Afr Amer 42 mL/min (>60); Estimated Creatinine Clearance 24.41 ml/min; Glucose 139 mg/dL (74-106); Sodium Level 135 mmol/L (136-145); Troponin-I HS 18 pg/mL (3.0-78.0)
[2020-12-31 17:16] LABS: Platelet Estimate SLT DEC (ADEQ); Red Cell Morphology NORM C+C NORMAL (NORM C&C)
--- NOTE | 2020-12-31 17:19 | HP.PCM.HOS_ITS ---
HPI - General General Date of Admission: 12/31/20 Date of Service: 12/31/20 Chief Complaint: Acute respiratory failure, ran out of oxygen while out running errands. HPI Narrative The patient is an 85 y/o M w/ PMHx: HTN, HLD, PAF, Diabetes mellitus type II, Chronic COPD, Carotid disease, CKD stage IV, Hypothyroidism, Chronic Systolic CHF/Non-ischemic cardiomyopathy, Obesity, Chronic Hypoxic Respiratory Failure (4-5L NC) who presents to the [facility] ED on 12/31/20 with history of out and about today and unfortunately noted being out of his oxygen with unfortunate eventual collapse, reports calling 911 who recommended CPR and she notes that she pushed on his chest once only after which he was arousable and gave no [id number] thus low suspicion for cardiac arrest and likely acute pulmonary respiratory failure primary etiology. Patient notes having felt well recently with chronic unchanged cough with no fevers or chills or any recent illness. He states he does have chronic dyspnea especially when he exerts himself but this i s unchanged until today when he ran out of oxygen. He was reported to be hypoxic into the 60s, normally 87-92% is his baseline especially with exertion. Work-up in the ED included T 97.8, heart rate 102, BP 120/90, respiratory rate 19, 94% on 4 L nasal cannula, CBC with WC 4.1, hemoglobin 9.5, platelets 142 with lymphopenia, INR 1.8, BMP with sodium 135, potassium 6, BUN/Cr 36/1.96, glucose 139, high-sensitivity troponin initial 18, BNP 366.3, chest x-ray with right lower lobe infiltrate with associated effusion, EKG with rate controlled atrial fibrillation. In the ED patient administered calcium gluconate, clindamycin, dextrose, insulin 6 units IV x1. [facility] Medical History Carotid artery stenosis COPD (chronic obstructive pulmonary disease) CRF (chronic renal failure) Essential (primary) hypertension HFrEF (heart failure with reduced ejection fraction) Hyperlipidemia Hypothyroidism Longstanding persistent atrial fibrillation Non-ischemic cardiomyopathy Obesity Paroxysmal atrial fibrillation Premature ventricular contractions Secondary pulmonary arterial hypertension Type 2 diabetes mellitus Home Medications aspirin 81 mg tablet,delayed release 81 mg PO DAILY 09/24/18 [History Last Taken Unknown] cyanocobalamin (vitamin B-12) 1,000 mcg capsule 1,000 mcg PO DAILY 09/24/18 [History Last Taken Unknown] gabapentin 300 mg capsule 300 mg PO QHS 09/24/18 [History Last Taken Unknown] levothyroxine 137 mcg capsule 125 mcg PO DAILY 09/24/18 [History Last Taken Unknown] lisinopril 40 mg tablet 20 mg PO DAILY 09/24/18 [History Last Taken Unknown] magnesium oxide 800 mg PO DAILY 09/24/18 [History Last Taken Unknown] metformin 500 mg 24 hr tablet,extended release 500 mg PO BID tab 09/24/18 [History Last Taken Unknown] metoprolol succinate 25 mg tablet,extended release 24 hr 25 mg PO DAILY 09/24/18 [History Last Taken Unknown] nitroglycerin 0.4 mg sublingual tablet 0.4 mg SUBLINGUAL Q5-15M 09/24/18 [History Last Taken Unknown] pravastatin 20 mg tablet 20 mg PO QHS tab 09/24/18 [History Last Taken Unknown] tiotropium bromide 1.25 mcg/actuation mist for inhalation 2 puff INHALATION DAILY 09/24/18 [History Last Taken Unknown] warfarin 3 mg tablet 3 mg PO 4XW 09/24/18 [History Last Taken Unknown] warfarin 4 mg tablet 4 mg PO Q OTHER DAY 09/24/18 [History Last Taken Unknown] mometasone-formoterol HFA 200 mcg-5 mcg/actuation aerosol inhaler 1 puff INHALATION BID 08/07/19 [History Last Taken Unknown] spironolactone 25 mg tablet 25 mg PO DAILY 07/28/20 [History Last Taken Unknown] furosemide 40 mg tablet 40 mg PO BID #60 tab 09/08/20 [Rx Last Taken Unknown] pioglitazone 15 mg tablet 15 mg PO DAILY 11/11/20 [History Last Taken Unknown] Allergy/AdvReac Type Severity Reaction Status Date / Time Penicillins AdvReac swelling Verified 12/31/20 16:08 Family History Father Hypertension Sister Hypertension Cancer Diabetes Sister Cancer Sister CAD (coronary artery disease) Brother CAD (coronary artery disease) Hypertension other (Patient denies any marked maternal family history including heart disease, diabetes, cancer.) Surgical History 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 Kathleen Colbert MD) household members: spouse Smoking Status: Former smoker quit date: 02/07/03 pack-years: 50 alcohol intake: never substance use type: does not use ROS ROS Narrative Admission Review of Systems: CONSTITUTIONAL: No weight loss, fever, chills, + weakness or fatigue. HEENT: Eyes: No visual loss, blurred vision, double vision or yellow sclerae. Ears, Nose, Throat: No hearing loss, sneezing, congestion, runny nose or sore throat. SKIN: No rash or itching, lesions, wounds. CARDIOVASCULAR: + BL LE edema. No chest pain, chest pressure or chest discomfort, palpitations, orthopnea, syncopal events. RESPIRATORY: + shortness of breath, chronic unchanged cough, mild sputum, occasional wheezing, No hemoptysis. GASTROINTESTINAL: No anorexia, nausea, vomiting or diarrhea, abdominal pain, melena, BRBPR. GENITOURINARY: No dysuria, frequency, urgency or retention. NEUROLOGICAL: No headache, dizziness, syncope, paralysis, ataxia, numbness or tingling in the extremities, focal weakness, change in bowel or bladder control, seizure. MUSCULOSKELETAL: + muscle, back pain, joint pain or stiffness. HEMATOLOGIC: + anemia, bleeding or bruising. LYMPHATICS: No enlarged nodes. No history of splenectomy. PSYCHIATRIC: No history of depression or anxiety. ENDOCRINOLOGIC: No reports of sweating, cold or heat intolerance. No polyuria or polydipsia. ALLERGIES: No history of asthma, hives, eczema or rhinitis. Vital Signs Vital Signs Vital Signs: 12/31/20 15:58 12/31/20 16:06 12/31/20 16:20 Temperature 97.8 F Temperature Source Oral Pulse Rate 102 H Respiratory Rate 19 H Respiratory Effort Normal Non-Labored Respiratory Depth Normal Respiratory Pattern Normal Blood Pressure 120/90 H Blood Pressure Mean 100 Pulse Ox 94 94 Oxygen Delivery Method Nasal Cannula Nasal Cannula Nasal Cannula Oxygen Flow Rate (L/min) 4 4 4 Weight Weight: 212 lb 11.937 oz Body Mass Index (BMI) 34.3 Physical Exam Narrative Physical Examination: General: Awake, alert, oriented x 3 including to self, place and recent events, remains cooperative, seated upright in the ED bed, mildly fatigued otherwise no acute distress. Patient notes that prior to events today he was feeling his baseline and had unchanged chronic cough. Skin: Normal color, normal turgor, no icterus, no cyanosis. HEENT: AT/NC, EOMI, PERRLA, mildly dry MM, no carotid bruits or marked JVD noted. Lungs: Diffusely diminished, right greater than left, no obvious crackles, rales, rhonchi or significant wheezing, mildly decreased effort. Heart: Irregular; no gallop, rub audible. Abdomen: Soft, obese, NTTP, ND, distant mildly hyperactive BS, no obvious evidence of HSM. Extremities: No cyanosis, no clubbing, notable bilateral extremity pedal to mid [place] 2+ pitting edema. Neurological: Patient awake, alert, oriented as noted, cognitive function intac t; pupils equally reactive to light and accommodation, cranial nerves II-XII grossly normal, moving all 4 extremities, no focal deficits, strength moderately to severely global decrease secondary to underlying comorbidities and acute presentation. Psychiatric: Affect appears fatigued otherwise normal, no acute evidence of depressive or anxiety feelings. Results Lab / Micro Data Result Diagrams: 12/31/20 16:40 12/31/20 16:40 Labs: Laboratory Results - last 24 hr 12/31/20 16:40: WBC 4.1 L, RBC 2.80 L, Hgb 9.5 L, Hct 30.6 L, MCV 109.3 H, MCH 33.9 H, MCHC 31.0 L, RDW Std Deviation 54.9 H, RDW Coeff of Luis 13.6, Plt Count 142 L, MPV 9.5, Immature Gran % (Auto) 0.000, Neut % (Auto) 89.7 H, Lymph % (Auto) 8.1 L, [place] % (Auto) 1.7, Eos % (Auto) 0.5, Baso % (Auto) 0.0, Absolute Neuts (auto) 3.7, Absolute Lymphs (auto) 0.33 L, Nucleated RBC % 0, Differential Comment , Diff Path Review May ozzy, Platelet Estimate SLT DEC, RBC Morphology NORM C+C 12/31/20 16:40: Sodium 135 L, Potassium 6.0 H*, Chloride 100, Carbon Dioxide 29.0, Anion Gap 6, BUN 36 H, Creatinine 1.96 H, Estim Creat Clear Calc 24.41, Est GFR (MDRD) Af Amer 42 L, Est GFR (MDRD) Non-Af 35 L, BUN/Creatinine Ratio 18.4, Glucose 139 H, Calcium 9.8, Troponin I High Sens 18 12/31/20 16:40: PT 20.0 H, INR 1.8 12/31/20 16:40: B-Natriuretic Peptide 366.3 H Radiology Impression Chest X-Ray 12/31/20 16:48 IMPRESSION: Right lower lobe infiltrate with associated effusion. Follow-up recommended to ensure resolution Electronically Signed: Silvio Nieves MD at 17:11 EST , Service support , Assessment & Plan Assessment/Plan (1) Pneumonia: QUALIFIERS: Pneumonia type: due to unspecified organism Laterality: right Lung location: lower lobe of lung Qualified Code(s): J18.9 - Pneumonia, unspecified organism PLAN: The patient is an 85 y/o M w/ PMHx: HTN, HLD, PAF, Diabetes mellitus type II, Chronic COPD, Carotid disease, CKD stage IV, Hypothyroidism, Chronic Systolic CHF/Non-ischemic cardiomyopathy, Obesity, Chronic Hypoxic Respiratory Failure (4-5L NC) who presents to the [facility] ED on 12/31/20 with history of out and about today and unfortunately noted being out of his oxygen with unfortunate eventual collapse, reports calling 911 who recommended CPR and she notes that she pushed on his chest once only after which he was arousable and gave no [id number] thus low suspicion for cardiac arrest and likely acute pulmonary respiratory failure primary etiology. #1. Possible aspiration pneumonia/pneumonitis given Acute Hypoxic Respiratory Failure on Chronic (4-5L NC baseline) with collapse suspected related to his acute respiratory failure: Will admit to PCU, maintain on oxygen with wean as tolerated to home oxygen supplementation, continue ATC duonebs, PRN albuterol, will cycle cardiac enzymes to be cautious but suspect pulmonary mediated collapse, maintained on IV Rocephin and Flagyl given a listed allergy to penicillin however he notes that this was when he was in his 20s and is amenable to trial of cephalosporin, HOB, IS parameters w/ pending sputum cultures and urine antigens, full respiratory panel as well as procalcitonin given do suspect possibly pneumonitis with chronic underlying changes. PT/OT/case management as well as speech consultations requested. #2. Hyperkalemia: Potassium 6.0, patient with no significant peaked T waves, administered calcium gluconate, dextrose, insulin in the ED. Will administer also Kayexalate and trend BMP this evening and it AM. #3. Longstanding persistent atrial fibrillation: We will continue patient home metoprolol regimen as well as Coumadin with INR trending. #4. Chronic systolic CHF/nonischemic cardiomyopathy: Chest x-ray with no significant overload, BNP mildly elevated, will continue patient aspirin, Lasix oral which was recently increased to BID but he has not started the second dose yet with IV lasix x 1 planned upon admission, spironolactone, metoprolol, lisinopril, statin therapy as well as Coumadin with INR trending, place carlos wr aps. #5. Hypothyroidism: Continue home synthroid regimen. #6. Hypertension: Continue home regimen including spironolactone, metoprolol, lisinopril with hold parameters as needed, PRN hydralazine. #7. Hyperlipidemia: Continue home statin regimen. #8. Diabetes mellitus type II: Hold oral home regimen, ADA diet, accu checks w/ ISS. #9. Chronic Kidney Disease Stage IV: Admission BUN/Cr 36/1.96, baseline renal function 1.7-1.8, repeat BMP this evening given hyperkalemia as well as in AM. #10. Obesity: Weight loss and lifestyle changes encouraged. #11. Chronic anemia, macrocytic: Admission hemoglobin 9.5, prior noted 10.5, baseline prior 10-11, will continue treatment as noted, trend CBC, continue vitamin B supplementation. #12. Former tobacco use: Encourage continued tobacco cessation. #13. Chronic thrombocytopenia, unclear etiology: Admission platelets 142, prior 137, stable, trend especially given Coumadin therapy. #14. DVT prophylaxis: SCDs, continue patient Coumadin with INR trending once coumadin dosing clarified. #15. CODE status: Patient TERRI is his who is present and living will is currently in place. Discussed CODE status at length including difference between FULL code, DNR-CCA and DNR-CC status. Following discussions about the differences in these status, requested DNR-CCA, no intubation. Advanced Care Planning Face to Face Time: 16 minutes. Charges/Coding Visit Charges Inpatient E&M: 96347 Init Hosp L3 Procedures Hospitalists Procedures: 27215 Advncd Care Plan 30 Min
--- NOTE | 2020-12-31 17:36 | NURSING ---
PCU WHITE ASPIRATION, ACUTE HYPOXIC RESP FAILURE, HYPERKALEMIA
[2020-12-31] MEDS: Dextrose 50%-Water 25 GM/50 ML DISP.SYRIN IV (18:00)
[2020-12-31] MEDS: Insulin Lispro 10 UNIT in Syringe 0 ML 6 UNIT IV (18:03)
--- NOTE | 2020-12-31 19:02 | PCS.PANDOC ---
PANDEMIC DOCUMENTATION INITIATED: Date: 09/22/2020 Time: 190
[2020-12-31 19:07] LABS: Magnesium 2.6 mg/dL (1.6-2.6)
[2020-12-31 20:43] LABS: Troponin-I HS 43 pg/mL (3.0-78.0)
[2020-12-31] MEDS: Sodium Polystyrene Sulfonate 15 GM/60 ML UDC PO (21:01)
[2020-12-31] MEDS: Furosemide 40 MG/4 ML Vial IV (21:02)
[2020-12-31] MEDS: Gabapentin 300 MG Capsule PO (21:14)
[2020-12-31] MEDS: Ceftriaxone 1 GM/50 ML BAG IV (21:14)
[2020-12-31] MEDS: Pravastatin 20 MG Tablet PO (21:14)
[2020-12-31] MEDS: Ipratropium/Albuterol Sulfate 3 ML AMPUL.NEB INHALATION (21:59)
[2020-12-31 22:36] LABS: Procalcitonin 0.08 ng/mL (0.00-0.09)
[2020-12-31 23:27] LABS: Anion Gap 5 (5-15); BUN 38 mg/dL (7-18); BUN/Creat Ratio 19.1 RATIO (10-20); Calcium,Total 10.1 mg/dL (8.5-10.1); Chloride 99 mmol/L (98-107); Creatinine, Serum 1.99 mg/dL (0.70-1.30); EST Glomerular Filtration Rate 34 mL/min (>60); Est Glom Filt Rate - Afr Amer 41 mL/min (>60); Estimated Creatinine Clearance 24.05 ml/min; Glucose 145 mg/dL (74-106); Potassium 5.6 mmol/L (3.5-5.1); Sodium Level 135 mmol/L (136-145); Troponin-I HS 43 pg/mL (3.0-78.0)
[2021-01-01] VITALS (17 sets, daily range): BP systolic 85–138; BP diastolic 46–78; PULSE 74–125; RESP 16–18; TEMP 36.1–36.9; O2SAT 93–100
[2021-01-01] MEDS: Polyethylene Glycol 3350 17 GM PACKET 34 GM PO (00:53)
[2021-01-01] MEDS: Sodium Polystyrene Sulfonate 15 GM/60 ML UDC 30 GM PO (00:53)
[2021-01-01 01:01] LABS: M R Staph aureus DNA By PCR Negative (Negative); Probe Check PASS; Specimen Processing Control PASS
[2021-01-01] MEDS: Furosemide 40 MG Tablet PO ×2 (01:31→16:14)
[2021-01-01] MEDS: Levothyroxine 125 MCG Tablet PO (05:12)
[2021-01-01 06:08] LABS: Absolute Lymphocyte Count 0.45 X10^3/uL (0.83-4.51); Absolute Neutrophil Count 2.7 X10^3/uL (2.0-7.7); Basophil# 0.01 X10^3/uL; Basophil% 0.3 % (0-1); Eosinophil# 0.02 X10^3/uL; Eosinophils% 0.6 % (0-5); Hematocrit 29.3 % (40-54); Lymphocyte # 0.45 X10^3/ul (0.83-4.51); Lymphocyte % 13.7 % (19-41); Mean Corp Hgb Conc 30.7 g/dL (32-36); Mean Corpuscular Hgb 33.3 pg (27.0-32.0); Mean Corpuscular Volume 108.5 fL (80-94); Mean Platelet Vol. 9.9 fl (6.2-12.0); NRBC Flagged by Analyzer 0 % (0-5); Neutrophil % 82.1 % (47-70); POSITIVE DIFFERENTIAL YES; Platelet Count 146 K/mm3 (150-450); RBC Distribution Width CV 13.6 % (11.6-14.6); RBC Distribution Width SD 54.2 fl (35.1-43.9); White Blood Count 3.3 K/mm3 (4.4-11.0)
[2021-01-01 06:11] LABS: Differential Indicated SCAN CRITERIA MET
[2021-01-01 06:32] LABS: International Normalized Ratio 1.7
[2021-01-01 06:36] LABS: ALB/GLOB Ratio 0.6 RATIO (0.9-2.4); AST(SGOT) 36 U/L (15-37); Alanine Aminotransfer ALT/SGPT 34 U/L (16-61); Albumin, Serum 2.6 g/dL (3.2-5.0); Alkaline Phosphatase 112 U/L (45-117); Anion Gap 6 (5-15); BUN 39 mg/dL (7-18); BUN/Creat Ratio 20.1 RATIO (10-20); Chloride 98 mmol/L (98-107); Creatinine, Serum 1.94 mg/dL (0.70-1.30); EST Glomerular Filtration Rate 35 mL/min (>60); Est Glom Filt Rate - Afr Amer 42 mL/min (>60); Estimated Creatinine Clearance 24.66 ml/min; Globulin 4.6 g/dL (2.2-4.2); Glucose 93 mg/dL (74-106); Potassium 5.3 mmol/L (3.5-5.1); Protein, Total 7.2 g/dL (6.4-8.2); Sodium Level 134 mmol/L (136-145)
[2021-01-01 07:05] LABS: Bedside Glucose 88 mg/dL (70-110)
[2021-01-01 07:05] LABS: Bedside Glucose 43 mg/dL (70-110)
[2021-01-01 07:05] LABS: Bedside Glucose 42 mg/dL (70-110)
[2021-01-01 07:05] LABS: Bedside Glucose 60 mg/dL (70-110)
[2021-01-01] MEDS: Ipratropium/Albuterol Sulfate 3 ML AMPUL.NEB INHALATION ×4 (07:18→18:58)
--- NOTE | 2021-01-01 07:20 | PCM.PN.HOSP ---
Subjective Subjective Patient with no acute events overnight with improvement in his oxygenation status. Patient did have IV Lasix x1 dose the evening prior as he had recently been started on twice daily but had yet to take this transition medication increase with mildly low blood pressures following. Given patient atypical presentation CT of the chest without contrast was obtained with noted right upper lobe small consolidations with recommendation for follow-up imaging at later date to assure exclusion of possibility of lung cancer underlying, moderate right pleural effusion as well as probable right bilateral basal atelectasis, moderate aortic valve stenosis with severe coronary artery disease. Patient denies fevers, chills, nausea, emesis, abdominal pain, chest pain or worsened dyspnea. Objective Data Objective Data Vital Signs: Vital Signs Temp Pulse Resp BP Pulse Ox 98.1 F 98 18 138/78 H 100 01/01/21 05:00 01/01/21 05:00 01/01/21 05:00 01/01/21 05:00 01/01/21 05:00 Oxygen Flow Rate (L/min) 4 Oxygen Delivery Method Nasal Cannula Weight: 208 lb 15.971 oz Body Mass Index (BMI) 33.7 Intake & Output: Intake and Output for Last 24 Hours 12/30/20 12/31/20 01/01/21 23:59 23:59 23:59 Intake Total 234 / 734 500 / 500 Balance 234 / 734 500 / 500 Lab / Micro Data Result Diagrams: 01/01/21 05:00 01/01/21 05:00 Labs: Laboratory Results - last 24 hr 12/31/20 16:40: WBC 4.1 L, RBC 2.80 L, Hgb 9.5 L, Hct 30.6 L, MCV 109.3 H, MCH 33.9 H, MCHC 31.0 L, RDW Std Deviation 54.9 H, RDW Coeff of Luis 13.6, Plt Count 142 L, MPV 9.5, Immature Gran % (Auto) 0.000, Neut % (Auto) 89.7 H, Lymph % (Auto) 8.1 L, [place] % (Auto) 1.7, Eos % (Auto) 0.5, Baso % (Auto) 0.0, Absolute Neuts (auto) 3.7, Absolute Lymphs (auto) 0.33 L, Nucleated RBC % 0, Differential Comment , Diff Path Review May foll, Platelet Estimate SLT DEC, RBC Morphology NORM C+C 12/31/20 16:40: Sodium 135 L, Potassium 6.0 H*, Chloride 100, Carbon Dioxide 29.0, Anion Gap 6, BUN 36 H, Creatinine 1.96 H, Estim Creat Clear Calc 24.41, Est GFR (MDRD) Af Amer 42 L, Est GFR (MDRD) Non-Af 35 L, BUN/Creatinine Ratio 18.4, Glucose 139 H, Calcium 9.8, Troponin I High Sens 18 12/31/20 16:40: PT 20.0 H, INR 1.8 12/31/20 16:40: B-Natriuretic Peptide 366.3 H 12/31/20 16:40: Magnesium 2.6 12/31/20 19:40: Procalcitonin 0.08 12/31/20 19:40: Troponin I High Sens 43 12/31/20 20:53: POC Glucose 43 L* 12/31/20 20:54: POC Glucose 42 L* 12/31/20 21:06: POC Glucose 60 L 12/31/20 22:54: Sodium 135 L, Potassium 5.6 H, Chloride 99, Carbon Dioxide 31.0, Anion Gap 5, BUN 38 H, Creatinine 1.99 H, Estim Creat Clear Calc 24.05, Est GFR (MDRD) Af Amer 41 L, Est GFR (MDRD) Non-Af 34 L, BUN/Creatinine Ratio 19.1, Glucose 145 H, Calcium 10.1, Troponin I High Sens 43 12/31/20 23:05: MRSA (PCR) Negative 01/01/21 05:00: WBC 3.3 L, RBC 2.70 L, Hgb 9.0 L, Hct 29.3 L, MCV 108.5 H, MCH 33.3 H, MCHC 30.7 L, RDW Std Deviation 54.2 H, RDW Coeff of Luis 13.6, Plt Count 146 L, MPV 9.9, Immature Gran % (Auto) 0.300, Neut % (Auto) 82.1 H, Lymph % (Auto) 13.7 L, [place] % (Auto) 3.0, Eos % (Auto) 0.6, Baso % (Auto) 0.3, Absolute Neuts (auto) 2.7, Absolute Lymphs (auto) 0.45 L, Nucleated RBC % 0, Diff Path Review June01/01/21 05:00: PT 19.0 H, INR 1.7 01/01/21 05:00: Sodium 134 L, Potassium 5.3 H, Chloride 98, Carbon Dioxide 30.0, Anion Gap 6, BUN 39 H, Creatinine 1.94 H, Estim Creat Clear Calc 24.66, Est GFR (MDRD) Af Amer 42 L, Est GFR (MDRD) Non-Af 35 L, BUN/Creatinine Ratio 20.1 H, Glucose 93, Calcium 10.0, Total Bilirubin 0.40, AST 36, ALT 34, Alkaline Phosphatase 112, Total Protein 7.2, Albumin 2.6 L, Globulin 4.6 H, Albumin/Globulin Ratio 0.6 L 01/01/21 06:44: POC Glucose 88 Micro: Microbiology 12/31/20 21:55 Mucosa - Nasopharyngeal Respiratory Panel (PCR) - Final 12/31/20 22:18 Urine, Clean Catch Legionella Antigen - Final 12/31/20 22:18 Urine, Clean Catch Streptococcus pneumoniae Antigen (M - Final Radiography Diagnostic Testing: Radiology Impression Chest X-Ray 12/31/20 16:48 IMPRESSION: Right lower lobe infiltrate with associated effusion. Follow-up recommended to ensure resolution Electronically Signed: Silvio Nieves MD at 17:11 EST , Service support , Physical Exam Narrative Physical Examination: General: Awake, alert, oriented x 3, improved interactiveness, no acute distress, notes being mildly fatigued today but improved from day prior. Skin: Normal color, normal turgor, no icterus, no cyanosis. HEENT: AT/NC, EOMI, PERRLA, improved MMM. Lungs: Diffusely diminished, right greater than left, improved effort from day prior, no obvious crackles, rales, rhonchi or significant wheezing. Heart: Irregular, rate controlled; no gallop, rub audible. Abdomen: Soft, obese, NTTP, ND, normalized BS. Extremities: No cyanosis, no clubbing, notable presentation BL LE BL 2+ swelling, improved today with lessed pitting, bang wraps in place. Neurological: Patient awake, alert, oriented as noted, cognitive function intact; pupils equally reactive to light and accommodation, cranial nerves II-XII grossly normal, moving all 4 extremities, no focal deficits, strength moderately to severely global decrease secondary to underlying comorbidities and acute presentation. Psychiatric: Affect appears less fatigued, no acute evidence of depressive or anxiety feelings. Assessment & Plan Assessment/Plan (1) Pneumonia: QUALIFIERS: Laterality: right Lung location: lower lobe of lung Pneumonia type: due to unspecified organism Qualified Code(s): J18.9 - Pneumonia, unspecified organism PLAN: The patient is an 85 y/o M w/ PMHx: HTN, HLD, PAF, Diabetes mellitus type II, Chronic COPD, Carotid disease, CKD stage IV, Hypothyroidism, Chronic Systolic CHF/Non-ischemic cardiomyopathy, Obesity, Chronic Hypoxic Respiratory Failure (4-5L NC) who presents to the [facility] ED on 12/31/20 with history of out and about today and unfortunately noted being out of his oxygen with unfortunate eventual collapse, reports calling 911 who recommended CPR and she notes that she pushed on his chest once only after which he was arousable and gave no [id number] thus low suspicion for cardiac arrest and likely acute pulmonary respiratory failure primary etiology. #1. Possible aspiration pneumonia/pneumonitis given Acute Hypoxic Respiratory Failure on Chronic (4-5L NC baseline) with collapse suspected related to his acute respiratory failure: Admitted to PCU, maintained on oxygen with wean as tolerated to home oxygen supplementation, continue ATC duonebs, PRN albuterol, cardiac enzymes unremarkable, maintained on IV Rocephin and Flagyl given a listed allergy to penicillin, HOB, IS parameters w/ pending sputum cultures, negative urine antigens, full respiratory panel negative, procalcitonin 0.08, CT chest requested given initial findings and from current evaluation lower suspicion for actual infection w/ noted right upper lobe small consolidations presumed to be pneumonia however patient will need follow-up imaging outpatient to assure no underlying cancer, moderate right-sided pleural effusion with probable bilateral basal atelectasis as well as moderate AV stenosis and severe coronary artery disease. Awaiting for oxygenation trial for discharge home planning. PT/OT/case management as well as speech consultations requested. #2. Hyperkalemia: Potassium 6.0, patient with no significant peaked T waves, administered calcium gluconate, dextrose, insulin in the ED and additionally given Kayexalate, repeat follow-up potassium 5.6 on 01/02/2020 1 AM 5.3. #3. Longstanding persistent atrial fibrillation: We will continue patient home metoprolol regimen as well as Coumadin with INR trending, 01/01/2021 INR 1.7 therefore will increase Coumadin and load. #4. Chronic systolic CHF/nonischemic cardiomyopathy: Chest x-ray with no significant overload, BNP mildly elevated, will continue patient aspirin, Lasix oral which was recently increased to BID but he has not started the second dose yet with IV lasix x 1 administered upon admission, spironolactone, metoprolol, lisinopril with hold parameters as patient with lower BP secondary to recent IV Lasix administration, continue statin therapy as well as Coumadin with alterations given INR 1.7 01/01/2021, snug Bang wraps. #5. Hypothyroidism: Continue home synthroid regimen. #6. Hypertension: Continue home regimen including spironolactone, metoprolol, lisinopril, lasix with hold parameters as needed, PRN hydralazine. #7. Hyperlipidemia: Continue home statin regimen. #8. Diabetes mellitus type II: Hold oral home regimen, ADA diet, accu checks w/ ISS. #9. Chronic Kidney Disease Stage IV: Admission BUN/Cr 36/1.96, baseline renal function 1.7-1.8, 01/01/21 BUN/Cr 39/1.94. #10. Obesity: Weight loss and lifestyle changes encouraged. #11. Chronic anemia, macrocytic: Admission hemoglobin 9.5, prior noted 10.5, baseline prior 10-11, will continue treatment as noted, trend CBC, continue vitamin B supplementation. 01/01/21 Hgb 9.0. #12. Former tobacco use: Encourage continued tobacco cessation. #13. Chronic thrombocytopenia, unclear etiology: Admission platelets 142, prior 137, stable, trend especially given Coumadin therapy, 01/01/21 Plts 146. #14. DVT prophylaxis: SCDs, continue patient Coumadin w/ increase, admission INRs subtherapeutic, 01/01/21 INR 1.7. #15. CODE status: Patient TERRI is his who is present and living will is currently in place. DNR-CCA, no intubation. Charges/Coding Visit Charges Inpatient E&M: 35359 Subs Hosp L2
--- NOTE | 2021-01-01 07:24 | CT_ITS ---
STUDY: CT CHEST WITHOUT CONTRAST REASON FOR EXAM: Male, 85 years old. Dyspnea pneumonia emphysema RADIATION DOSAGE (If Supplied By Facility): CTDIvol = ( 16.73 ) mGy, DLP = ( 572.77 ) mGycm TECHNIQUE: Transaxial imaging was performed without the administration of intravenous contrast material. Individualized dose optimization techniques were used for this CT. COMPARISON: None. FINDINGS: There is a 2 cm peripheral right upper lobe consolidation. There are small bilateral consolidations, likely in part due to atelectasis. There is moderate right pleural effusion. Airways are patent. Lungs are emphysematous. Coronary arteries are severely diseased. Aortic valve is moderately stenotic. The patient is anemic. There is right heart enlargement and mild pulmonary arterial hypertension. Aorta is normal caliber. CT/Chest without Contrast IMPRESSION: 1. Right upper lobe small consolidations, presumed pneumonia. Refer to follow-up imaging to document complete resolution to exclude possibility of this being lung cancer. 2. Moderate right pleural effusion, probably bilateral basal atelectasis. 3. Moderate aortic valve stenosis. Cardiology referral advised. 4. Severe coronary artery disease. Electronically Signed: Gabrielle Valentin MD at 10:32 EST Tel , Service support ,
[2021-01-01] MEDS: Spironolactone 25 MG Tablet PO (09:07)
[2021-01-01] MEDS: Magnesium Chloride 64 MG Delay Rel.Tablet 128 MG PO (09:08)
[2021-01-01] MEDS: Aspirin E.C. 81 MG Tablet PO (09:08)
[2021-01-01] MEDS: Cyanocobalamin 500 MCG Tablet 1000 MCG PO (09:08)
[2021-01-01] MEDS: Ceftriaxone 1 GM/50 ML BAG IV (09:53)
[2021-01-01] MEDS: Insulin Lispro 100 UNIT/ML INSULN.PEN SC (11:17)
[2021-01-01 11:45] LABS: Bedside Glucose 153 mg/dL (70-110)
[2021-01-01 18:10] LABS: Bedside Glucose 128 mg/dL (70-110)
[2021-01-01] MEDS: Gabapentin 300 MG Capsule PO (20:43)
[2021-01-01] MEDS: Pravastatin 20 MG Tablet PO (20:43)
[2021-01-01 20:50] LABS: Bedside Glucose 147 mg/dL (70-110)
[2021-01-02] VITALS (10 sets, daily range): BP systolic 105–148; BP diastolic 64–79; PULSE 88–111; RESP 18–20; TEMP 36.5–36.7; O2SAT 86–96
[2021-01-02] MEDS: Levothyroxine 125 MCG Tablet PO (06:33)
[2021-01-02 06:56] LABS: Bedside Glucose 92 mg/dL (70-110)
[2021-01-02] MEDS: Aspirin E.C. 81 MG Tablet PO (08:45)
[2021-01-02] MEDS: Magnesium Chloride 64 MG Delay Rel.Tablet 128 MG PO (08:45)
[2021-01-02] MEDS: Spironolactone 25 MG Tablet PO (08:45)
[2021-01-02] MEDS: Furosemide 40 MG Tablet PO (08:45)
[2021-01-02] MEDS: Metoprolol(XL)Succ 25 MG Tablet PO (08:46)
[2021-01-02] MEDS: Lisinopril 20 MG Tablet PO (08:46)
[2021-01-02] MEDS: Cyanocobalamin 500 MCG Tablet 1000 MCG PO (08:46)
[2021-01-02] MEDS: Ceftriaxone 1 GM/50 ML BAG IV (08:50)
--- NOTE | 2021-01-02 11:10 | CASEMGMT ---
ABHIJEET TAYLOR assessment: Face to Face with patient for initial transition planning/care coordination assessment. ABHIJEET TAYLOR introduced self and role at [facility], pt voices understanding and consents to assessment. Pt is sitting up in chair in no distress on 4L nc, which is his home dose. Pt is A/Ox4 and answers all questions appropriately. Care providers, pharmacy, and demographics verified. Presentation: Pt's portable concentrator quit working and pt collapsed- started CPR-pt's sat was in the 60's on EMS arrival Admitting dx: Aspiration pna, A on C resp failure, pneumonitis PCP: Pineda Specialists: Brown, cardio Preferred Pharmacy: [facility] Insurance: [place] secure [facility] Prescription Benefit: Yes Living Will/HPOA: Pt states has LW/HPOA and is aware that they are not on file at [facility]. Pt states his , Vanesa Albright, is HPOA. LNOK: Vanesa Albright, ; Kera Felix, daughter Living Arrangements: Pt lives with in 2 story home and states no concerns at home. Pt is independent with ADL's. Transportation: Pt drives self and states no transportation concerns. DME/HHC: Pt has the following DME: several walkers, grab bars, shower chair, POC, and 4L continuous home oxygen thru [facility]. Pt states no need for any further DME. Pt states no hx of HHC or SNF. Pt states no concerns with going home at time of discharge. Pt is retired. Pt states does not smoke cigarettes or drink ETOH. Pt voices no further concerns/needs. CM to follow for any further discharge planning/needs. Advised pt to ask for CM if any further questions/concerns/needs arise, voices understanding. Pt Goal: [place] ABHIJEET TAYLOR
--- NOTE | 2021-01-02 11:36 | CASEMGMT ---
Addendum entered by Magalys Cuevas 01/02/21 15:16: Call back from [facility] [place] and they do not have a 10L concentrator, which pt will now need d/t 6L w/ exertion. Pt updated and states ok to fax order to another company and willing to switch to same company. Referral faxed to [facility] and Ria updated on all, voices understanding. Pt/ updated on all and to call [facility] on arrival home to have them set up their equipment for pt. [facility] and [facility] aware. Pt/ voice no further questions/concerns/needs. Dawit [facility] CM Original Note: Pt qualifies for 4L at rest and 6L w/ exertion. New order faxed to [facility] [place] and call to [facility] [place] on-call to notify of increased oxygen need/e-tank for discharge, voices understanding. Pt states has own POC(not thru [facility] [place]) but it's not working and he will need e-tanks at home and one for discharge. CM to follow. Dawit [facility] CM
--- NOTE | 2021-01-02 11:43 | PCM.DC.SUM ---
Providers Date of Admission: 12/31/20 Primary Care Physician: Dr. Edvin Sung MD Reason For Visit: ? APS PNA/PNEUMONITITIS, ACUTE ON CHRONIC RESP Diagnosis Discharge Diagnosis (1) Pneumonia: Status: Acute Code(s): J18.9 - Pneumonia, unspecified organism Qualifiers: Laterality: right Lung location: lower lobe of lung Pneumonia type: due to unspecified organism Qualified Code(s): J18.9 - Pneumonia, unspecified organism Plan: Medications at Discharge Home Medications aspirin 81 mg tablet,delayed release 81 mg PO DAILY 09/24/18 cyanocobalamin (vitamin B-12) 1,000 mcg capsule 1,000 mcg PO DAILY 09/24/18 gabapentin 300 mg capsule 300 mg PO QHS 09/24/18 levothyroxine 137 mcg capsule 125 mcg PO DAILY 09/24/18 lisinopril 40 mg tablet 20 mg PO DAILY 09/24/18 magnesium oxide 800 mg PO DAILY 09/24/18 metformin 500 mg 24 hr tablet,extended release 500 mg PO BID tab 09/24/18 metoprolol succinate 25 mg tablet,extended release 24 hr 25 mg PO DAILY 09/24/18 nitroglycerin 0.4 mg sublingual tablet 0.4 mg SUBLINGUAL Q5-15M 09/24/18 pravastatin 20 mg tablet 20 mg PO QHS tab 09/24/18 tiotropium bromide 1.25 mcg/actuation mist for inhalation 2 puff INHALATION DAILY 09/24/18 warfarin 3 mg tablet 3 mg PO 4XW 09/24/18 warfarin 4 mg tablet 4 mg PO Q OTHER DAY 09/24/18 mometasone-formoterol HFA 200 mcg-5 mcg/actuation aerosol inhaler 1 puff INHALATION BID 08/07/19 spironolactone 25 mg tablet 25 mg PO DAILY 07/28/20 furosemide 40 mg tablet 40 mg PO BID #60 tab 09/08/20 pioglitazone 15 mg tablet 15 mg PO DAILY 11/11/20 warfarin 2 mg PO DAILY 12/31/20 cefdinir 300 mg PO Q12 5 Days #10 cap 01/02/21 metronidazole 500 mg PO TID 5 Days #15 tab 01/02/21 Hospital Course Operations None Procedures EKG Summary of Care Provided Minutes Spent on Discharge: 35 Hospital Course: DISCHARGE NOTE: Discharge Diagnoses: #1. Suspected Aspiration pneumonia secondary to Acute Hypoxic Respiratory Failure on Chronic (4-5L NC baseline) secondary to running out of his oxygen with collapse #2. Hyperkalemia #3. Longstanding persistent atrial fibrillation #4. Chronic systolic CHF/nonischemic cardiomyopathy #5. Hypothyroidism #6. Hypertension #7. Hyperlipidemia #8. Diabetes mellitus type II #9. Chronic Kidney Disease Stage IV #10. Obesity #11. Chronic anemia, macrocytic #12. Former tobacco use #13. Chronic thrombocytopenia, unclear etiology #14. CODE status: Patient TERRI is his who is present and living will is currently in place. DNR-CCA, no intubation. Discharge Summary: The patient is an 85 y/o M w/ PMHx: HTN, HLD, PAF, Diabetes mellitus type II, Chronic COPD, Carotid disease, CKD stage IV, Hypothyroidism, Chronic Systolic CHF/Non-ischemic cardiomyopathy, Obesity, Chronic Hypoxic Respiratory Failure (4-5L NC) who presented to the [facility] ED on 12/31/20 with history of out and about today and unfortunately noted being out of his oxygen with unfortunate eventual collapse, reports calling 911 who recommended CPR and she notes that she pushed on his chest once only after which he was arousable and gave no [id number] thus low suspicion for cardiac arrest and likely acute pulmonary respiratory failure primary etiology Admitted to PCU, maintained on oxygen with wean as tolerated to home oxygen supplementation, continue ATC duonebs, PRN albuterol, cardiac enzymes unremarkable, maintained on IV Rocephin and Flagyl given a listed allergy to penicillin w/ discharge to home on flagyl oral with recommended close INR trending in addition to cefdinir. Patient with negative urine antigens, full respiratory panel negative. CT chest requested given initial findings and from current evaluation lower suspicion for actual infection w/ noted right upper lobe small consolidations presumed to be pneumonia however given findings pulmonary follow-up requested outpatient for follow-up imaging to assure no underlying cancer once acute presentation resolved. During admission patient with noted hyperkalemia w/ potassium 6.0 with no significant peaked T waves on EKG, administered calcium gluconate, dextrose, insulin in the ED and additionally given Kayexalate, repeat follow-up potassium 5.6-->5.3. Patient discharged to home in stable improved condition. Requested CM/SW assure appropriate oxygen for home with follow-up with his oxygen company. Requested patient follow-up with PCP, Pulmonary and Cardiology as previously arranged. Patient abx oral transition regimen rx sent to listed prefered pharmacy [facility]. Oxygenation assessment prior to discharge similar to his home usage with noted 94% on 4L NC at rest and increase to 6L 90% with activity. Discharge Time: > 35 Minutes DAY OF DISCHARGE PROGRESS NOTE: Subjective: Patient without acute event overnight per self and nursing report. Patient noted slept less well secondary to machines making noises. Feels improved and eager for home discharge. Discussed need at length to assure his oxygen tank/compressor be checked to avoid running out again. Patient denies fever, chills, nausea, emesis, abdominal pain, chest pain or worsened/recurrent dyspnea. Objective: T 97.7, heart rate 94, BP 148/79, respiratory rate 18, 94% on 4 L nasal cannula. Physical Examination: General: Awake, alert, oriented x 3, no acute distress, fatigued, notes he is eager for discharge. Skin: Normal color, normal turgor, no icterus, no cyanosis. HEENT: AT/NC, EOMI, PERRLA, improved MMM. Lungs: Remains diminished, right mildly greater than left, improved effort, notes feeling is baseline, no obvious distress, occasional end expiratory wheeze. Heart: Irregular, rate controlled; no gallop, rub audible. Abdomen: Soft, obese, NTTP, ND, normalized BS. Extremities: No cyanosis, no clubbing, improvement in bilateral lower extremity swelling which was 2+ upon presentation, wraps in place. Neurological: Patient awake, alert, oriented as noted, cognitive function intact; pupils equally reactive to light and accommodation, cranial nerves II-XII grossly normal, moving all 4 extremities, no focal deficits, strength improved, moderately globally decreased secondary to underlying comorbidities and acute presentation. Psychiatric: Affect appears mildly fatigued, notes very eager for discharge, no acute evidence of depressive or anxiety feelings. Assessment and Plan: Please see hospital summary above. Weight / BMI Weight Weight: 203 lb 7.787 oz Body Mass Index (BMI) 33.7 ABG / Lab / Microbiology Data Result Diagrams: 01/01/21 05:00 01/01/21 05:00 Laboratory: Laboratory Results - last 24 hr 01/01/21 11:14: POC Glucose 153 H 01/01/21 16:12: POC Glucose 128 H 01/01/21 20:42: POC Glucose 147 H 01/02/21 06:35: POC Glucose 92 Microbiology: Microbiology 01/01/21 12:45 Sputum, Expectorated/Coughed Gram Stain - Final 12/31/20 21:55 Mucosa - Nasopharyngeal Respiratory Panel (PCR) - Final 12/31/20 22:18 Urine, Clean Catch Legionella Antigen - Final 12/31/20 22:18 Urine, Clean Catch Streptococcus pneumoniae Antigen (M - Final Meaningful Use Info Meaningful Use Diagnoses (Choose all that apply): None applicable Discharge Plan Admission Admit Date/Time: 12/31/20 17:54 Primary Reason for Your Visit: Aspiration pneumonia w/ Acute Respiratory Failure on Chronic, Hyperkalemia Attending Provider: Kathleen Colbert Primary Care Provider: Edvin Sung Instructions Patient Instructions: Traveling with Oxygen, Using Oxygen Safely, Pneumonia Additional Instructions / Restrictions: DISCHARGE INSTRUCTIONS: - Upon presentation your INR was subtherapeutic; however, Flagyl can temporarily increase your INR level thus we may need to re-adjust your level of coumadin following completion of this regimen. Please closely continue to follow your INR outpatient given planned short-term of flagyl to cover possibility of aspiration pneumonia. Recommend repeat INR 01/04/21 or tuesday at the latest. - Upon discharge please complete your regimen of flagyl and cefdinir for concern of aspiration pneumonia. - IT IS VITAL that you assure your oxygen level in your tank/compressor is sufficient. If you are having any issues with your levels or machine immediately contact the company-DO NOT DELAY. YOU CANNOT run out of your oxygen otherwise a similar event with respiratory failure and aspiration may occur. - Upon admission you potassium level was notable elevated but improved following treatment. Avoid potassium supplements. Recommend repeat BMP with your primary care at follow-up to assure continued normalized level. - Please continue your recent transition to lasix twice daily regimen initiated outpatient per your [employer]. To assist in improving your chronic leg swelling you may place compression stockings or use snug carlos wraps from toe to knee, overlapping, no skin showing. - During admission you had a CT chest w/ noted right upper lobe small consolidations presumed to be pneumonia however you will need follow-up imaging outpatient to assure no underlying cancer. Please maintain your follow-up with Pulmonary medicine. Discharge Orders/Prescriptions Prescriptions: New metronidazole 500 mg Tablet 500 mg PO TID 5 Days Qty: 15 RF: 0 cefdinir 300 mg Capsule 300 mg PO Q12 5 Days Qty: 10 RF: 0 Continued metformin 500 mg tablet,ER sofía.retention 24 hr 500 mg PO BID RF: 0 gabapentin [Neurontin] 300 mg capsule 300 mg PO QHS RF: 0 warfarin 3 mg tablet 3 mg PO 4XW RF: 0 warfarin 4 mg tablet 4 mg PO Q OTHER DAY RF: 0 levothyroxine 137 mcg capsule 137 mcg capsule 125 mcg PO DAILY RF: 0 pravastatin 20 mg tablet 20 mg PO QHS RF: 0 metoprolol succinate 25 mg tablet extended release 24 hr 25 mg PO DAILY RF: 0 lisinopril 40 mg tablet 20 mg PO DAILY RF: 0 nitroglycerin 0.4 mg tablet, sublingual 0.4 mg SUBLINGUAL Q5-15M RF: 0 cyanocobalamin (vitamin B-12) 1,000 mcg capsule 1,000 mcg PO DAILY RF: 0 magnesium oxide 400 mg magnesium capsule 800 mg PO DAILY RF: 0 aspirin [Adult Low Dose Aspirin] 81 mg tablet,delayed release (DR/EC) 81 mg PO DAILY RF: 0 Spiriva Respimat 1.25 mcg/actuation mist 2 puff INHALATION DAILY RF: 0 mometasone-formoterol 200-5 mcg/actuation HFA aerosol inhaler 1 puff INHALATION BID RF: 0 pioglitazone 15 mg tablet 15 mg PO DAILY RF: 0 warfarin 2 mg Tablet 2 mg PO DAILY RF: 0 spironolactone 25 mg tablet 25 mg PO DAILY RF: 0 furosemide [Lasix] 40 mg tablet 40 mg PO BID Qty: 60 RF: 11 Referrals / Follow Up: Joe Roger MD [NON-STAFF] - (Please follow-up within 2-4 weeks to review admission, CT chest follow-up.) Edvin Sung MD [Primary Care Provider] - 01/05/21 12:40 pm (Follow-up in 3-5 days to review admission.) Disposition Disposition (needs filled in before D/C Order can be placed): Home Health Service Charges/Coding Visit Charges Inpatient E&M: 34343 Disch Hosp
[2021-01-02 12:02] LABS: Absolute Lymphocyte Count 0.47 X10^3/uL (0.83-4.51); Absolute Neutrophil Count 3.3 X10^3/uL (2.0-7.7); Basophil# 0.02 X10^3/uL; Basophil% 0.5 % (0-1); Eosinophil# 0.11 X10^3/uL; Eosinophils% 2.7 % (0-5); Hematocrit 29.7 % (40-54); Hemoglobin 9.2 g/dL (13.0-16.5); Lymphocyte # 0.47 X10^3/ul (0.83-4.51); Lymphocyte % 11.5 % (19-41); Mean Corpuscular Hgb 34.2 pg (27.0-32.0); Mean Corpuscular Volume 110.4 fL (80-94); Mean Platelet Vol. 9.3 fl (6.2-12.0); Monocyte# 0.11 X10^3/uL; Monocyte% 2.7 % (0-10); NRBC Flagged by Analyzer 0 % (0-5); Neutrophil # 3.34 X10^3/uL (2.7-7.7); Neutrophil % 82.1 % (47-70); POSITIVE DIFFERENTIAL YES; Platelet Count 139 K/mm3 (150-450); RBC Distribution Width CV 14.4 % (11.6-14.6); RBC Distribution Width SD 57.3 fl (35.1-43.9); Red Blood Count 2.69 M/mm3 (4.6-6.2); White Blood Count 4.1 K/mm3 (4.4-11.0)
[2021-01-02 12:05] LABS: Differential Indicated SCAN CRITERIA MET
[2021-01-02] MEDS: Ipratropium/Albuterol Sulfate 3 ML AMPUL.NEB INHALATION (12:10)
[2021-01-02 12:21] LABS: Anion Gap 4 (5-15); BUN 33 mg/dL (7-18); BUN/Creat Ratio 16.5 RATIO (10-20); Calcium,Total 9.4 mg/dL (8.5-10.1); Chloride 98 mmol/L (98-107); EST Glomerular Filtration Rate 34 mL/min (>60); Est Glom Filt Rate - Afr Amer 41 mL/min (>60); Estimated Creatinine Clearance 23.93 ml/min; Glucose 143 mg/dL (74-106); Potassium 4.5 mmol/L (3.5-5.1); Sodium Level 135 mmol/L (136-145)
[2021-01-02] MEDS: Cefdinir 300 MG Capsule PO (12:23)
[2021-01-02] MEDS: metroNIDAZOLE 500 MG Tablet PO (12:24)
[2021-01-02] MEDS: Insulin Lispro 100 UNIT/ML INSULN.PEN SC (12:24)
[2021-01-02 12:31] LABS: International Normalized Ratio 1.5; Prothrombin Time (Protime)PT. 17.6 SECONDS (11.7-14.9)
[2021-01-02 12:40] LABS: Bedside Glucose 157 mg/dL (70-110)
[2021-01-02 15:25] LABS: Pathologist Review Reviewed
[2021-01-02 15:31] LABS: Pathologist Review Reviewed
[2021-01-05 15:02] LABS: Pathologist Review Reviewed
== END 2021-01-02 16:18 | disposition home health service (06) | DRG 177 ==
LOC: ED 17:06 → PCU 18:10
PROVIDERS: Admitting Provider Family Medicine; Emergency Provider Student in an Organized Health Care Education/Training Program; PCP Internal Medicine; Visit Provider Family Medicine
DX: J69.0 Pneumonitis due to inhalation of food and vomit (principal); J96.21 Acute and chronic respiratory failure with hypoxia; I48.11 Longstanding persistent atrial fibrillation; I13.0 Hypertensive heart and chronic kidney disease with heart failure and stage 1 through stage 4 chronic kidney disease, or unspecified chronic kidney disease; N18.4 Chronic kidney disease, stage 4 (severe); I50.22 Chronic systolic (congestive) heart failure; J44.0 Chronic obstructive pulmonary disease with (acute) lower respiratory infection; I42.8 Other cardiomyopathies; E87.5 Hyperkalemia; E03.9 Hypothyroidism, unspecified; E11.22 Type 2 diabetes mellitus with diabetic chronic kidney disease; I65.29 Occlusion and stenosis of unspecified carotid artery; D63.1 Anemia in chronic kidney disease; E78.5 Hyperlipidemia, unspecified; D69.6 Thrombocytopenia, unspecified; E66.9 Obesity, unspecified; Z66 Do not resuscitate; Z68.34 Body mass index [BMI] 34.0-34.9, adult; Z79.01 Long term (current) use of anticoagulants; Z79.82 Long term (current) use of aspirin; Z79.84 Long term (current) use of oral hypoglycemic drugs; Z99.81 Dependence on supplemental oxygen; Z79.899 Other long term (current) drug therapy; Z87.891 Personal history of nicotine dependence
CPT/HCPCS: 36415; 71045; 71250; 80048; 80053; 82962; 83735; 83880; 84145; 84484; 85025; 85610; 87070; 87077; 87186; 87205; 87449; 87633; 87641; 92610; 93005; 94640; 97162; 97802; 99251; 99285; J7050; A4216; G0463; J0610; J1940

== ENCOUNTER → 2021-01-07 09:33 | Outpatient (CLI) | payer MEDICARE, SELFPAY ==
[2021-01-07 12:03] LABS: Anion Gap 10 (5-15); BUN 45 mg/dL (7-18); BUN/Creat Ratio 20.6 RATIO (10-20); Calcium,Total 8.7 mg/dL (8.5-10.1); Chloride 99 mmol/L (98-107); Creatinine, Serum 2.18 mg/dL (0.70-1.30); EST Glomerular Filtration Rate 31 mL/min (>60); Est Glom Filt Rate - Afr Amer 37 mL/min (>60); Glucose 100 mg/dL (74-106); Potassium 4.3 mmol/L (3.5-5.1); Sodium Level 139 mmol/L (136-145)
== END ==
LOC: LAB 09:37
PROVIDERS: PCP Internal Medicine; Visit Provider Internal Medicine
DX: E87.5 Hyperkalemia (principal)
CPT/HCPCS: 36415; 80048